=== PATIENT | female | born 1950 | race Caucasian/White ===

== ENCOUNTER 2017-05-14 10:13 | Observation (INO) | payer MEDICARE, BC ==
[2017-05-14] MEDS ORDERED: NITROGLYCERIN OINT 1 INCH/GM PACKET TOPICAL STA (10:37)
[2017-05-14] MEDS ORDERED: ASPIRIN 81 MG PO STA (10:37)
--- NOTE | 2017-05-14 10:47 | ED ---
General Adult HPI - General Chief complaint: Chest Pain Stated complaint: chest pain Time Seen by Provider: 05/14/17 10:15 Source: patient, RN notes reviewed Mode of arrival: ambulatory Limitations: no limitations - History of Present Illness Initial comments: This is a 67-year-old female who presents with a past medical history significant for high blood pressure high cholesterol. Patient states this morning about 8:30 she started having right-sided chest pain which she describes as a heaviness and the pain radiated down her right arm. Patient states nothing seems to make that pain better or worse and the pain is still present. Patient denies any diaphoresis. Patient denies any nausea or vomiting. Patient states after about an hour pain she started having symptoms sharp darting pains in her right chest. Patient states those pains and last seconds any. To be worse with taking a deep breath. Patient denies any recent long trips or travel. Patient denies any calf pain. Patient denies any leg swelling. Patient denies headache patient denies numbness weakness. Patient denies lightheadedness dizziness or near syncopal episode. Patient denies abdominal pain - Related Data Home Medications Medication Instructions Recorded Confirmed Losartan/Hydrochlorothiazide 0.5 tab PO DAILY 05/14/17 05/14/17 [Losartan-Hctz 100-25 mg Tab] Simvastatin [Zocor] 40 mg PO DAILY 05/14/17 05/14/17 Allergies Allergy/AdvReac Type Severity Reaction Status Date / Time No Known Allergies Allergy Verified 05/14/17 11:09 Review of Systems ROS Statement: Those systems with pertinent positive or pertinent negative responses have been documented in the HPI. ROS Other: All systems not noted in ROS Statement are negative. Past Medical History Past Medical History: Hypertension History of Any Multi-Drug Resistant Organisms: None Reported Past Surgical History: Cholecystectomy Additional Past Surgical History / Comment(s): laparoscopic [employer] Past Psychological History: No Psychological Hx Reported Smoking Status: Never smoker Past Alcohol Use History: Occasional Past Drug Use History: None Reported General Exam - General Exam Comments Initial Comments: GENERAL: Patient is well-developed and well-nourished. Patient is nontoxic and well- hydrated and is in mild distress. ENT: Neck is soft and supple. No significant lymphadenopathy is noted. Oropharynx is clear. Moist mucous membranes. Neck has full range of motion without eliciting any pain. EYES: The sclera were anicteric and conjunctiva were pink and moist. Extraocular movements were intact and pupils were equal round and reactive to light. Eyelids were unremarkable. PULMONARY: Unlabored respirations. Good breath sounds bilaterally. No audible rales rhonchi or wheezing was noted. CARDIOVASCULAR: There is a regular rate and rhythm without any murmurs gallops or rubs. ABDOMEN: Soft and nontender with normal bowel sounds. No palpable organomegaly was noted. There is no palpable pulsatile mass. SKIN: Skin is clear with no lesions or rashes and otherwise unremarkable. NEUROLOGIC: Patient is alert and oriented x3. Cranial nerves II through XII are grossly intact. Motor and sensory are also intact. Normal speech, volume and content. Symmetrical smile. MUSCULOSKELETAL: Normal extremities with adequate strength and full range of motion. No lower extremity swelling or edema. No calf tenderness. LYMPHATICS: No significant lymphadenopathy is noted PSYCHIATRIC: Normal psychiatric evaluation. Normal interpersonal interactions appears functionally intact in deals appropriately with others. Limitations: no limitations Course Vital Signs 05/14/17 10:15 Temperature 97 F L Pulse Rate 73 Respiratory 18 Rate Blood Pressure 130/93 O2 Sat by Pulse 99 Oximetry Medical Decision Making - Medical Decision Making EKG shows normal sinus rhythm at 60 bpm LA interval 196 QRS is 88 QT interval 412 QTC is 438. Patient's EKG shows no ST segment elevation or depression or T- wave abnormality she noted Patient stated that the Nitropaste seem to relieve the chest pressure. Patient x-ray shows no acute abnormality. - Lab Data Result diagrams: 05/14/17 10:40 05/14/17 10:40 Lab Results 05/14/17 05/14/17 05/14/17 Range/Units 10:40 10:40 10:40 WBC 5.3 (3.8-10.6) k/uL RBC 4.78 (3.80-5.40) m/uL Hgb 14.9 (11.4-16.0) gm/dL Hct 42.5 (34.0-46.0) % MCV 89.0 (80.0-100.0) fL MCH 31.1 (25.0-35.0) pg MCHC 34.9 (31.0-37.0) g/dL RDW 12.3 (11.5-15.5) % Plt Count 165 (150-450) k/uL Neutrophils % 55 % Lymphocytes % 31 % Monocytes % 7 % Eosinophils % 3 % Basophils % 1 % Neutrophils # 2.9 (1.3-7.7) k/uL Lymphocytes # 1.7 (1.0-4.8) k/uL Monocytes # 0.4 (0-1.0) k/uL Eosinophils # 0.2 (0-0.7) k/uL Basophils # 0.1 (0-0.2) k/uL PT (9.0-12.0) sec INR (<1.2) APTT (22.0-30.0) sec D-Dimer (<0.60) mg/L FEU Sodium 140 (137-145) mmol/L Potassium 4.4 (3.5-5.1) mmol/L Chloride 105 (98-107) mmol/L Carbon Dioxide 27 (22-30) mmol/L Anion Gap 8 mmol/L BUN 16 (7-17) mg/dL Creatinine 0.70 (0.52-1.04) mg/dL Est GFR (MDRD) Af Amer >60 (>60 ml/min/1.73 sqM) Est GFR (MDRD) Non-Af >60 (>60 ml/min/1.73 sqM) Glucose 112 H (74-99) mg/dL Calcium 8.9 (8.4-10.2) mg/dL Magnesium 1.8 (1.6-2.3) mg/dL Total Bilirubin 0.5 (0.2-1.3) mg/dL AST 28 (14-36) U/L ALT 40 (9-52) U/L Alkaline Phosphatase 70 (38-126) U/L Total Creatine Kinase 97 (30-135) U/L CK-MB (CK-2) 2.2 (0.0-2.4) ng/mL CK-MB (CK-2) Rel Index 2.3 Troponin I <0.012 (0.000-0.034) ng/mL Total Protein 7.4 (6.3-8.2) g/dL Albumin 4.4 (3.5-5.0) g/dL 05/14/17 Range/Units 10:40 WBC (3.8-10.6) k/uL RBC (3.80-5.40) m/uL Hgb (11.4-16.0) gm/dL Hct (34.0-46.0) % MCV (80.0-100.0) fL MCH (25.0-35.0) pg MCHC (31.0-37.0) g/dL RDW (11.5-15.5) % Plt Count (150-450) k/uL Neutrophils % % Lymphocytes % % Monocytes % % Eosinophils % % Basophils % % Neutrophils # (1.3-7.7) k/uL Lymphocytes # (1.0-4.8) k/uL Monocytes # (0-1.0) k/uL Eosinophils # (0-0.7) k/uL Basophils # (0-0.2) k/uL PT 9.6 (9.0-12.0) sec INR 0.9 (<1.2) APTT 24.5 (22.0-30.0) sec D-Dimer 0.20 (<0.60) mg/L FEU Sodium (137-145) mmol/L Potassium (3.5-5.1) mmol/L Chloride (98-107) mmol/L Carbon Dioxide (22-30) mmol/L Anion Gap mmol/L BUN (7-17) mg/dL Creatinine (0.52-1.04) mg/dL Est GFR (MDRD) Af Amer (>60 ml/min/1.73 sqM) Est GFR (MDRD) Non-Af (>60 ml/min/1.73 sqM) Glucose (74-99) mg/dL Calcium (8.4-10.2) mg/dL Magnesium (1.6-2.3) mg/dL Total Bilirubin (0.2-1.3) mg/dL AST (14-36) U/L ALT (9-52) U/L Alkaline Phosphatase (38-126) U/L Total Creatine Kinase (30-135) U/L CK-MB (CK-2) (0.0-2.4) ng/mL CK-MB (CK-2) Rel Index Troponin I (0.000-0.034) ng/mL Total Protein (6.3-8.2) g/dL Albumin (3.5-5.0) g/dL Disposition Clinical Impression: Chest pain Disposition: ADMITTED IP TO THIS HOSP Referrals: Nonstaff,Physician [Primary Care Provider] - 1-2 days Time of Disposition: 12:03
[2017-05-14 10:54] LABS: Basophils # (A) 0.1 k/uL (0-0.2); Basophils % (A) 1 %; CH 30.4; CHCM 34.3; Eosinophils # (A) 0.2 k/uL (0-0.7); Eosinophils % (A) 3 %; HCT 42.5 % (34.0-46.0); HDW 2.43; HGB 14.9 gm/dL (11.4-16.0); Luc # (Auto) 0.18; Luc % (Auto) 3; Lymphocytes # (A) 1.7 k/uL (1.0-4.8); Lymphocytes % (A) 31 %; MCH 31.1 pg (25.0-35.0); MCHC 34.9 g/dL (31.0-37.0); Mean Platelet Volume 8.4; Monocytes # (A) 0.4 k/uL (0-1.0); Monocytes % (A) 7 %; Neutrophils # (A) 2.9 k/uL (1.3-7.7); Neutrophils % (A) 55 %; RBC 4.78 m/uL (3.80-5.40); RDW 12.3 % (11.5-15.5); WBC 5.3 k/uL (3.8-10.6); WBC (Perox) 5.32
[2017-05-14 11:19] LABS: INR 0.9 (<1.2); Partial Thromboplastin Time 24.5 sec (22.0-30.0); Prothrombin Time 9.6 sec (9.0-12.0)
[2017-05-14 11:22] LABS: Creatine Kinase 97 U/L (30-135)
[2017-05-14 11:24] LABS: ALT 40 U/L (9-52); AST 28 U/L (14-36); Alkaline Phosphatase 70 U/L (38-126); Anion Gap 8 mmol/L; Blood Urea Nitrogen 16 mg/dL (7-17); Calcium 8.9 mg/dL (8.4-10.2); Carbon Dioxide 27 mmol/L (22-30); Chloride 105 mmol/L (98-107); Glucose 112 mg/dL (74-99); Magnesium 1.8 mg/dL (1.6-2.3); Non-African American GFR(MDRD) >60 (>60 ml/min/1.73 sqM); Sodium 140 mmol/L (137-145); Total Bilirubin 0.5 mg/dL (0.2-1.3); Total Protein 7.4 g/dL (6.3-8.2)
[2017-05-14 11:31] LABS: Potassium 4.4 mmol/L (3.5-5.1)
[2017-05-14 11:33] LABS: Creatine Kinase MB 2.2 ng/mL (0.0-2.4); Troponin I <0.012 ng/mL (0.000-0.034)
--- NOTE | 2017-05-14 11:34 | XR ---
EXAMINATION TYPE: XR chest 2V DATE OF EXAM: 05/14/2017 COMPARISON: NONE HISTORY: Right arm numbness, tingling and chest pain TECHNIQUE: Frontal and lateral views of the chest are obtained. FINDINGS: There is no focal air space opacity, pleural effusion, or pneumothorax seen. The cardiac silhouette size is within normal limits. The osseous structures are intact. Mild degenerative pickering es of the thoracic spine. IMPRESSION: No acute cardiopulmonary process.
[2017-05-14] MEDS ORDERED: NITROGLYCERIN SL TABS 0.4 MG TAB SUBLINGUAL PRN (12:04)
--- NOTE | 2017-05-14 14:08 | P.HPIM ---
History of Present Illness H&P Date: 05/14/17 Chief Complaint: chest pain 67-year-old female who presents with a past medical history significant for high blood pressure high cholesterol. Patient states this morning about 8:30 she started having right-sided chest and breast pain which she describes as a heaviness and the pain radiated into her back and shoulder. Patient states nothing seems to make that pain better , but it's worse with deep breaths. Patient denies any diaphoresis. Patient denies any nausea or vomiting. Patient states after about an hour pain she started having symptoms sharp darting pains in her right chest. Patient also reports some radiation into the neck interscapular area from the shoulder , ports that she woke up with some right upper extremity numbness and tingling. Reports that most of her discomfort is reproducible and seems to be exaggerated by movement. Patient denies any recent long trips or travel. Patient denies any calf pain. Patient denies any leg swelling. Patient denies headache patient denies numbness weakness. Patient denies lightheadedness dizziness or near syncopal episode. 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 Father Family Medical History: Cancer Additional Family Medical History / Comment(s): Father with colon cancer at the age of 56yrs. Medications and Allergies Home Medications Medication Instructions Recorded Confirmed Type Losartan/Hydrochlorothiazide 0.5 tab PO DAILY 05/14/17 05/14/17 History [Losartan-Hctz 100-25 mg Tab] Simvastatin [Zocor] 40 mg PO DAILY 05/14/17 05/14/17 History Allergies Allergy/AdvReac Type Severity Reaction Status Date / Time No Known Allergies Allergy Verified 05/14/17 11:09 Physical Exam Vitals: Vital Signs Temp Pulse Resp BP Pulse Ox 05/14/17 12:26 98 F 61 18 153/90 97 05/14/17 10:15 97 F L 73 18 130/93 99 Intake and Output 05/13/17 05/14/17 05/14/17 22:59 06:59 14:59 Other: Weight 70.307 kg Patient Weight 05/15/17 06:59 Weight 70.307 kg Constitutional: No acute distress, conversant, pleasant Eyes: Anicteric sclerae, moist conjunctiva, no lid-lag, PERRLA ENMT: NC/AT,Oropharynx clear, no erythema, exudates Neck:Supple, FROM, no masses, or JVD, No carotid bruits; No thyromegaly Lungs: Clear to auscultation, Clear to percussion, Normal respiratory effort, no accessory muscle use Cardiovascular: Heart regular in rate and rhythm, No murmurs, gallops, or rubs no peripheral edema Abdominal: Soft Nontender, nom distended, no guarding, no rebound or rigidity, Normoactive bowel sounds No hepatomegaly, No splenomegaly, No palpable mass No abdominal wall hernia noted Skin: Normal temperature, tone, texture, turgor, No induration No subcutaneous nodules, No rash, lesions, No ulcers Extremities:No digital cyanosis No clubbing, Pedal pulses intact and symmetrical Radial pulses intact and symmetrical Normal gait and station, No calf tenderness Psychiatric: Alert and oriented to person, place and time, Appropriate affect Intact judgement Neuro: Muscles Strength 5/5 in all 4 extremities, Sensation to light touch grossly present throughout, Cranial nerves II-XII grossly intact. No focal sensory deficits Results CBC & Chem 7: 05/14/17 10:40 05/14/17 10:40 Labs: Abnormal Lab Results - Last 24 Hours (Table) 05/14/17 Range/Units 10:40 Glucose 112 H (74-99) mg/dL Assessment and Plan (1) Atypical chest pain Status: Acute (2) HTN (hypertension) Status: Acute (3) Dyslipidemia Status: Acute Plan: The patient is a 67-year-old female is admitted with atypical chest pain today she does have coronary risk factors which include hypertension and dyslipidemia her initial EKG and troponins were negative for any acute ischemia. She is placed on observation and anticipate a less than to midnight stay for atypical chest pain to rule out ACS, continue to trend cardiac enzymes , the story does not sound convincing for cardiac but seems to be more muscle skeletal related, hence will order a x-ray of the shoulder and neck cardiology has been been counseled in the ED. Of ordered 2-D echocardiogram, continue chest pain orders with nitroglycerin aspirin statin therapy and continuing her home medications. Continue to monitor her and follow her clinical course Time with Patient: Greater than 30
--- NOTE | 2017-05-14 14:37 | XR ---
EXAMINATION TYPE: XR shoulder complete RT DATE OF EXAM: 05/14/2017 COMPARISON: NONE HISTORY: Shoulder pain TECHNIQUE: Three views are submitted. FINDINGS: The osseous structures are intact. There is no acute fracture or dislocation. The AC joint is noted with hypertrophic changes. IMPRESSION: 1. AC joint arthropathy correlate for chronic rotator cuff disease.
--- NOTE | 2017-05-14 14:45 | P.CRDCN ---
History of Present Illness Consult date: 05/14/17 History of present illness: This is a 67-year-old female pt with past medical history significant for hypertension. She follows with her primary care dr in [place]. She doesn't see a merchandise planner for any reason. She presented to the hospital with right sided chest pain with radiation down the right arm. She states she woke up this morning and was laying in bed looking on he phone when she started to feel a tightness in her right chest. She started to get up and used her arms to brace herself up and the pain came on stronger. She denies associated symptoms of nausea, vomiting, shortness of breath, palpitations, dizziness or diaphoresis. The pain is worse with movement and deep inspiration. She has been doing some heavy lifting and house cleaning last week. Her current medications include Zocor 40mg daily and losartan/hctz 100/25 daily. EKG indicates sinus mechanism with no ST or T-wave abnormalities. There is no old for comparison. Review of Systems Extensive review of systems performed, negative except mentioned in HPI. 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 Father Family Medical History: Cancer Additional Family Medical History / Comment(s): Father with colon cancer at the age of 56yrs. Medications and Allergies Home Medications Medication Instructions Recorded Confirmed Type Losartan/Hydrochlorothiazide 0.5 tab PO DAILY 05/14/17 05/14/17 History [Losartan-Hctz 100-25 mg Tab] Simvastatin [Zocor] 40 mg PO DAILY 05/14/17 05/14/17 History Allergies Allergy/AdvReac Type Severity Reaction Status Date / Time No Known Allergies Allergy Verified 05/14/17 11:09 Physical Exam Vitals: Vital Signs Temp Pulse Pulse Resp BP BP Pulse Ox 05/14/17 13:26 97.4 F L 63 18 141/86 100 05/14/17 12:26 98 F 61 18 153/90 97 05/14/17 10:15 97 F L 73 18 130/93 99 Intake and Output 05/13/17 05/14/17 05/14/17 22:59 06:59 14:59 Other: Weight 73.2 kg Patient Weight 05/15/17 06:59 Weight 73.2 kg GENERAL: This is a 67-year-old female in no apparent distress at the time of my examination. HEENT: Head is atraumatic, normocephalic. Pupils are equal, round. Sclerae anicteric. Conjunctivae are clear. Mucous membranes of the mouth are moist. Neck is supple. There is no jugular venous distention. No carotid bruit is heard. LUNGS: Clear to auscultation no wheezes, rales or rhonchi. Right chest wall tenderness is noted on palpation, right arm movement and with deep breathing. HEART: Regular rate and rhythm without murmurs, rubs or gallops. S1 and S2 heard. ABDOMEN: Soft, nontender. Bowel sounds are heard. No organomegaly noted. EXTREMITIES: 2+ peripheral pulses with no evidence of peripheral edema and no calf tenderness noted. NEUROLOGIC: Patient is awake, alert and oriented x3. Results 05/14/17 10:40 05/14/17 10:40 Cardiac Enzymes 05/14/17 05/14/17 Range/Units 10:40 10:40 AST 28 (14-36) U/L CK-MB (CK-2) 2.2 (0.0-2.4) ng/mL Troponin I <0.012 (0.000-0.034) ng/mL Coagulation 05/14/17 Range/Units 10:40 PT 9.6 (9.0-12.0) sec APTT 24.5 (22.0-30.0) sec CBC 05/14/17 Range/Units 10:40 WBC 5.3 (3.8-10.6) k/uL RBC 4.78 (3.80-5.40) m/uL Hgb 14.9 (11.4-16.0) gm/dL Hct 42.5 (34.0-46.0) % Plt Count 165 (150-450) k/uL Comprehensive Metabolic Panel 05/14/17 Range/Units 10:40 Sodium 140 (137-145) mmol/L Potassium 4.4 (3.5-5.1) mmol/L Chloride 105 (98-107) mmol/L Carbon Dioxide 27 (22-30) mmol/L BUN 16 (7-17) mg/dL Creatinine 0.70 (0.52-1.04) mg/dL Glucose 112 H (74-99) mg/dL Calcium 8.9 (8.4-10.2) mg/dL AST 28 (14-36) U/L ALT 40 (9-52) U/L Alkaline Phosphatase 70 (38-126) U/L Total Protein 7.4 (6.3-8.2) g/dL Albumin 4.4 (3.5-5.0) g/dL Current Medications Generic Name Dose Route Start Last Admin Trade Name Freq PRN Reason Stop Dose Admin Aspirin 325 mg 05/15/17 09:00 Aspirin PO DAILY [facility] Atorvastatin Calcium 20 mg 05/15/17 09:00 Lipitor PO DAILY [facility] HCTZ/Losartan Potassium 1 each 05/15/17 09:00 Hyzaar 50-12.5 PO DAILY [facility] Nitroglycerin 1 inch 05/14/17 18:00 Nitro-Bid Oint TOPICAL Q6HR [facility] Nitroglycerin 0.4 mg 05/14/17 12:04 Nitrostat SUBLINGUAL Q5M PRN Chest Pain Intake and Output 05/13/17 05/14/17 05/14/17 22:59 06:59 14:59 Other: Weight 73.2 kg Patient Weight 05/15/17 06:59 Weight 73.2 kg 05/14/17 10:40 05/14/17 10:40 EKG Interpretations (text) EKG indicates normal sinus mechanism with no acute ST or T-wave abnormalities. Assessment and Plan Plan: ASSESSMENT 1. Musculoskeletal chest pain 2. Essential hypertension PLAN Obtain serial troponins and EKG for 1 more result. Her pain and presentation are more indicative of a musculoskeletal type pain. If the troponin and EKG are normal she can be discharged home to follow-up with Dr. Rivera for outpatient stress test. I also recommend using NSAIDs for pain control, rest and ice as needed. Thank you kindly for this consultation. Nurse Practitioner note has been reviewed, I agree with a documented findings and plan of care. Patient was seen and examined.
--- NOTE | 2017-05-14 16:49 | XR ---
EXAMINATION TYPE: XR cervical spine comp DATE OF EXAM: 05/14/2017 TECHNIQUE: Frontal, lateral, oblique, swimmers, and open mouth view of the cervical spine are obtaine d. HISTORY: Neck pain COMPARISON: None FINDINGS: Multilevel degenerative disc disease is appreciated, most pronounced at C4-C5, C5-C6 and C 6-C7 with anterior bridging osteophytes, facet arthropathy and uncovertebral hypertrophy. This result s in at least moderate neural foraminal narrowing at C4-C5 and C5-C6 on the left and at least mild ne ural foraminal narrowing at C3-C4 on the right. Heterotopic ossification is seen posterior to the spi nous processes of C5 and C6. There is straightening of the usual cervical lordosis. The cervical spine is visualized in its entirety from C1 thru the top of T1 level, it is satisfactory in alignment without evidence of acute fracture or dislocation. The pre-vertebral soft tissue appea rs within normal limits. The C1-C2 articulation is within normal limits on the open mouth view. IMPRESSION: 1. No acute fracture or dislocation is seen in the cervical spine. 2. Multilevel degenerative disc disease most pronounced at C4-7 with variable degrees of neural eva inal narrowing.
[2017-05-14 17:28] LABS: Creatine Kinase 76 U/L (30-135)
[2017-05-14 17:41] LABS: Creatine Kinase MB 2.1 ng/mL (0.0-2.4); Troponin I <0.012 ng/mL (0.000-0.034)
[2017-05-14] MEDS: NITROGLYCERIN OINT 1 INCH/GM PACKET TOPICAL SCH ×2 (18:03→23:46)
[2017-05-14 23:27] LABS: Creatine Kinase 78 U/L (30-135)
[2017-05-14 23:40] LABS: Creatine Kinase MB 1.8 ng/mL (0.0-2.4); Troponin I <0.012 ng/mL (0.000-0.034)
[2017-05-15 06:55] LABS: Cholesterol 167 mg/dL (<200); HDL Cholesterol 78 mg/dL (40-60)
[2017-05-15] MEDS: NITROGLYCERIN OINT 1 INCH/GM PACKET TOPICAL SCH (08:02)
[2017-05-15 08:26] VITALS: BP 140/78; PULSE 68; RESP 15; TEMP 98
[2017-05-15] MEDS ORDERED: ASPIRIN 325 MG TAB PO SCH (09:00)
[2017-05-15] MEDS ORDERED: ATORVASTATIN 20 MG TAB PO SCH (09:00)
[2017-05-15] MEDS ORDERED: LOSARTAN-HCTZ 50-12.5 MG 1 EACH TAB PO SCH (09:00)
--- NOTE | 2017-05-15 09:51 | P.DS ---
Providers Date of admission: 05/14/17 12:04 Expected date of discharge: 05/15/17 Attending physician: Rodrick Prince MD Consults: 05/14/17 12:04 Consult Physician Urgent Consulting Provider: [facility] Consult Reason/Comments: Chest pain Do you want consulting provider notified?: Yes Primary care physician: Physician Jaya Lund MD - Discharge Diagnosis(es) (1) Atypical chest pain Current Visit: Yes Status: Acute (2) HTN (hypertension) Current Visit: Yes Status: Acute (3) Dyslipidemia Current Visit: Yes Status: Acute (4) Cervical radiculopathy due to degenerative joint disease of spine Current Visit: Yes Status: Acute (5) Rotator cuff disorder Current Visit: Yes Status: Acute Hospital Course: The patient is a 67-year-old female with a past medical history of hypertension and dyslipidemia who presented with atypical chest pain and was admitted and placed in observation on telemetry unit to the rule out ACS, shins history itself was not convincing for coronary disease however she was placed on telemetry to rule out ACS initial and sequential cardiac enzymes are negative for acute ischemia as well as her EKG. Further workup of her atypical right-sided chest and breast pain with radiation into the shoulder and neck with x-rays was consistent with AC joint arthropathy due to possible rotator cuff disease and multilevel DJD of the cervical spine most pronounced at C4 to C7 various degrees of neural foraminal narrowing consistent with cervical DJD with radiculopathy. She was subsequently started on Mobic and Neurontin and instructed to follow up with her primary care physician. The patient was also told to follow up with Dr. Miguel glover for plans for outpatient stress test. His discharge process took approximately 20 minutes Patient Condition at Discharge: Stable Plan - Discharge Summary New Discharge Prescriptions: New Gabapentin [Neurontin] 100 mg PO TID #90 cap Meloxicam [Mobic] 7.5 mg PO DAILY #30 tab Continue Simvastatin [Zocor] 40 mg PO DAILY Losartan/Hydrochlorothiazide [Losartan-Hctz 100-25 mg Tab] 0.5 tab PO DAILY Discharge Medication List Losartan/Hydrochlorothiazide [Losartan-Hctz 100-25 mg Tab] 0.5 tab PO DAILY [History] Simvastatin [Zocor] 40 mg PO DAILY 05/14/17 [History] Gabapentin [Neurontin] 100 mg PO TID #90 cap 05/15/17 [Rx] Meloxicam [Mobic] 7.5 mg PO DAILY #30 tab 05/15/17 [Rx] Follow up Appointment(s)/Referral(s): Steff Rivera MD [STAFF PHYSICIAN] - 2 Weeks Nonstaff,Physician [Primary Care Provider] - 1-2 days Discharge Disposition: HOME SELF-CARE
--- NOTE | 2017-05-15 12:54 | ECHOF ---
Referral Reason:chest pain, HTN MEASUREMENTS -------- HEIGHT: 165.1 cm WEIGHT: 70.3 kg BP: 153/90 RVIDd: 2.9 cm (< 3.3) IVSd: 1.0 cm (0.6 - 1.1) LVIDd: 4.3 cm (3.9 - 5.3) LVPWd: 1.0 cm (0.6 - 1.1) IVSs: 1.3 cm LVIDs: 2.8 cm LVPWs: 1.3 cm LA Diam: 3.4 cm (2.7 - 3.8) LAESV Index (A-L): 20.91 ml/m Ao Diam: 3.0 cm (2.0 - 3.7) AV Cusp: 2.2 cm (1.5 - 2.6) MV EXCURSION: 16.399 mm (> 18.000) MV EF SLOPE: 36 mm/s (70 - 150) EPSS: 0.6 cm MV E Vahid: 0.76 m/s MV DecT: 387 ms MV A Vahid: 1.11 m/s MV E/A Ratio: 0.69 RAP: 5.00 mmHg RVSP: 23.43 mmHg FINDINGS -------- Sinus rhythm. This was a technically good study. The left ventricular size is normal. Left ventricular wall thickness is normal. Overall left ventricular systolic function is normal with, an EF between 60 - 65 %. The right ventricle is normal in size. Normal LA size by volume 22+/-6 ml/m2. The right atrium is normal in size. The aortic valve is trileaflet and appears structurally normal. The mitral valve is normal. Mild mitral regurgitation is present. No regurgitation noted Right ventricular systolic pressure is normal at < 35 mmHg. There is no pulmonic regurgitation present. The aortic root size is normal. Normal inferior vena cava with normal inspiratory collapse consistent with estimated right atrial pressure of 5 mmHg. There is no pericardial effusion. CONCLUSIONS -------- 1. Sinus rhythm. 2. The mitral valve is normal. 3. Mild mitral regurgitation is present. 4. No regurgitation noted 5. Right ventricular systolic pressure is normal at < 35 mmHg. 6. There is no pulmonic regurgitation present. 7. The aortic root size is normal. 8. Normal inferior vena cava with normal inspiratory collapse consistent with estimated right atrial pressure of 5 mmHg. 9. There is no pericardial effusion. 10. This was a technically good study. 11. The left ventricular size is normal. 12. Left ventricular wall thickness is normal. 13. Overall left ventricular systolic function is normal with, an EF between 60 - 65 %. 14. The right ventricle is normal in size. 15. Normal LA size by volume 22+/-6 ml/m2. 16. The right atrium is normal in size. 17. The aortic valve is trileaflet and appears structurally normal. [employer]: Nayely Ocasio RDCS
== END 2017-05-15 10:50 | disposition home or self-care (01) ==
LOC: EC 10:13 → 3OBS 12:04
PROVIDERS: ADMIT Family Medicine; ATTEND Family Medicine
DX: R07.89 Other chest pain (principal); I10 Essential (primary) hypertension; E78.5 Hyperlipidemia, unspecified; M47.892 Other spondylosis, cervical region; M54.12 Radiculopathy, cervical region; Z79.899 Other long term (current) drug therapy; Z82.49 Family history of ischemic heart disease and other diseases of the circulatory system; Z79.1 Long term (current) use of non-steroidal anti-inflammatories (NSAID)
CPT/HCPCS: 99285; 36415; 93005; 93306; 85379; 80061; 80053; 82550; 82553; 83735; 84484; 85025; 85610; 85730; 71020; 72050; 73030; G0378 ×2